=== PATIENT | male | born 1955 | race Caucasian/White ===

== ENCOUNTER 2018-10-05 18:50 | Emergency (ER) | payer OTHER ==
[~2018-10-05] VITALS: Ht 167.6 cm; Wt 70.0 kg
[~2018-10-05 18:50] MED LIST: ALPR1TAB7 PO; AMLO-147 PO; AMLO2.5T78 PO; ASPI1TAB2 PO; BIOT1CAP3 PO; BISM262O23 PO; CLON-379 PO; METO-429 PO; METO10TA3 PO; OMEP40CA6 PO; SUMA25TA34 PO
[2018-10-05 19:13] VITALS: Ht 167.6 cm; Wt 70.0 kg
--- NOTE | 2018-10-05 21:13 | ERD ---
ER Documentation Chief Complaint Chief Complaint C/O DARK STOOLS, DIZZINESS AND SOB SINCE LAST NIGHT HPI Very pleasant 63-year-old gentleman history of gastritis but no history of peptic ulcer disease, NSAID abuse or alcohol abuse. The patient presents with 2 days of dark stools. He denies darker stools that are brown not black not malodorous. He states that he recently started taking Pepto-Bismol for 1 to 2 days just before these findings started. He denies any hematemesis, no chest pain or shortness of breath. The patient has constant postprandial epigastric abdominal discomfort that is consistent with his gastritis. 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 It was reported that he had dizziness and shortness of breath last night at triage but he denies this on my examination and history. ROS All systems reviewed and are negative except as per history of present illness. Medications Home Meds Active Scripts Amlodipine Besylate* (Amlodipine Besylate*) 10 Mg Tablet, 10 MG PO DAILY, #30 TAB Prov:HEIDI FLYNN DO 02/23/15 Clonidine Hcl* (Clonidine Hcl*) 0.1 Mg Tab, 0.3 MG PO BID, #20 TAB Prov:DION DANIEL MD 02/15/15 Reported Medications Dvfvqvh-Cctzlpfokjlkl-Diwmdoai* (Excedrin Extra Strength*) 250-250-65 Mg Tablet, 1 TAB PO Q6H PRN for PAIN, TAB 02/14/15 Sumatriptan Succinate* (Imitrex*) Unknown Strength Tablet, PO BID PRN for HEADACHE, TAB May repeat after 2 hours if needed; MAX 200 mg/24 hours 02/14/15 Allergies Allergies: Coded Allergies: No Known Allergy (Unverified , 02/14/15) PMhx/Soc History of Surgery: No Anesthesia Reaction: No Hx Neurological Disorder: No Hx Respiratory Disorders: No Hx Cardiac Disorders: Yes (HTN) Hx Psychiatric Problems: No Hx Miscellaneous Medical Probl: No Hx Alcohol Use: No Hx Substance Use: No Hx Tobacco Use: Yes Smoking Status: Current every day smoker FmHx Family History: No diabetes Physical Exam Vitals Vital Signs Date Temp Pulse Resp B/P (MAP) Pulse Ox O2 O2 Flow FiO2 Time Delivery Rate 10/05/18 44 16 162/74 98 Room Air 20:09 (103) 10/05/18 97.8 47 17 141/68 99 19:13 (92) Physical Exam General: Well developed, well nourished, no acute distress Head: Normocephalic, atraumatic. Eyes: Pupils equally reactive, EOM intact ENT: Moist mucous membranes Neck: Supple, no lymphadenopathy Respiratory: Lungs clear bilaterally, no distress Cardiovascular: RRR, no murmurs, rubs, or gallops Abdominal: Soft, non-tender, non-distended, no peritoneal signs : Deferred MSK: No edema, no unilateral swelling, 5/5 strength Neurologic: Alert and oriented, moving all extremities, normal speech, no focal weakness, no cerebellar signs Skin: No rash Psych: Normal mood Result Diagram: 10/05/18200510/05/182005 Results 24 hrs Laboratory Tests Test 10/05/18 20:06 White Blood Count 5.9 10^3/ul Red Blood Count 5.08 10^6/ul Hemoglobin 14.3 g/dl Hematocrit 44.5 % Mean Corpuscular Volume 87.6 fl Mean Corpuscular Hemoglobin 28.1 pg Mean Corpuscular Hemoglobin Concent 32.1 g/dl Red Cell Distribution Width 13.2 % Platelet Count 188 10^3/UL Mean Platelet Volume 10.0 fl Immature Granulocytes % 0.200 % Neutrophils % 64.8 % Lymphocytes % 24.4 % Monocytes % 8.5 % Eosinophils % 1.2 % Basophils % 0.9 % Nucleated Red Blood Cells % 0.0 /100WBC Immature Granulocytes # 0.010 10^3/ul Neutrophils # 3.8 10^3/ul Lymphocytes # 1.4 10^3/ul Monocytes # 0.5 10^3/ul Eosinophils # 0.1 10^3/ul Basophils # 0.1 10^3/ul Nucleated Red Blood Cells # 0.0 10^3/ul Prothrombin Time 12.9 Sec Prothrombin Time Ratio 1.0 INR International Normalized Ratio 0.96 Activated Partial Thromboplast Time 30.5 Sec Sodium Level 141 mmol/L Potassium Level 4.7 mmol/L Chloride Level 101 mmol/L Carbon Dioxide Level 33 mmol/L Anion Gap 7 Blood Urea Nitrogen 17 mg/dl Creatinine 1.11 mg/dl Est Glomerular Filtrat Rate mL/min > 60 mL/min Glucose Level 88 mg/dl Calcium Level 9.5 mg/dl Total Bilirubin 0.4 mg/dl Direct Bilirubin 0.00 mg/dl Indirect Bilirubin 0.4 mg/dl Aspartate Amino Transf (AST/SGOT) 21 IU/L Alanine Aminotransferase (ALT/SGPT) 30 IU/L Alkaline Phosphatase 40 IU/L Troponin I < 0.012 ng/ml Total Protein 7.7 g/dl Albumin 4.5 g/dl Globulin 3.20 g/dl Albumin/Globulin Ratio 1.40 Procedures/MDM LAB INTERPRETATION: I reviewed the laboratory testing and it shows [no evidence of acute process] MEDICAL DECISION MAKING: The patient presents to the emergency room with darker stools after taking Pepto-Bismol. All the patient does have a history of gastritis he has no risk factors for peptic ulcer disease and does not clinically appear to have evidence of melena or upper GI hemorrhage. Additionally the patient's hemoglobin is 14.3, BUN to creatinine ratio is normal and the patient's [place] bleeding score is 0 points. Based on these findings I do not believe the patient warrants hospitalization and further investigation in the acute setting. The patient however needs to follow-up with his solar photovoltaic installer. Return precautions were discussed and understood. Patient verbalized understanding and feels comfortable with this plan. The darker stools at this point do not seem to be consistent with melena and her most likely secondary to Pepto-Bismol use. CONSULTATION: [None] DISPOSITION PLAN: The patient does not have an identifiable emergent medical condition that warrants inpatient hospitalization at this time. The patient is deemed safe for discharge with outpatient follow-up. We discussed follow up with the patient's primary care doctor within 24 to 48 hours as needed. We also discussed return to the emergency room for worsening symptoms or worsening condition. Outpatient referral: Gastroenterology Discharge Medications: [None required] Departure Diagnosis: Primary Impression: Gastritis Gastritis type: unspecified gastritis Chronicity: unspecified Gastritis bleeding: without bleeding Qualified Codes: K29.70 - Gastritis, unspecified, without bleeding Additional Impression: Dark stools Condition: Stable Patient Instructions: Gastritis (Adult) Referrals: MYRNA WILSON MD, PIYUSH K [facility] YOU HAVE RECEIVED A MEDICAL SCREENING EXAM AND THE RESULTS INDICATE THAT YOU DO NOT HAVE A CONDITION THAT REQUIRES URGENT TREATMENT IN THE EMERGENCY DEPARTMENT. FURTHER EVALUATION AND TREATMENT OF YOUR CONDITION CAN WAIT UNTIL YOU ARE SEEN IN YOUR DOCTORS OFFICE WITHIN THE NEXT 1-2 DAYS. IT IS YOUR RESPONSIBILITY TO MAKE AN APPOINTMENT FOR FOLOW-UP CARE. IF YOU HAVE A PRIMARY DOCTOR --you should call your primary doctor and schedule an appointment IF YOU DO NOT HAVE A PRIMARY DOCTOR YOU CAN CALL OUR PHYSICIAN REFERRAL HOTLINE AT IF YOU CAN NOT AFFORD TO SEE A PHYSICIAN YOU CAN CHOSE FROM THE FOLLOWING [facility] [address] [facility] [address] [facility] [address] [facility] [address] [facility] [address] [facility]. [facility] [address] [facility]. [facility] YOU HAVE RECEIVED A MEDICAL SCREENING EXAM AND THE RESULTS INDICATE THAT YOU DO NOT HAVE A CONDITION THAT REQUIRES URGENT TREATMENT IN THE EMERGENCY DEPARTMENT. FURTHER EVALUATION AND TREATMENT OF YOUR CONDITION CAN WAIT UNTIL YOU ARE SEEN IN YOUR DOCTORS OFFICE WITHIN THE NEXT 1-2 DAYS. IT IS YOUR RESPONSIBILITY TO MAKE AN APPOINTMENT FOR FOLOW-UP CARE. IF YOU HAVE A PRIMARY DOCTOR --you should call your primary doctor and schedule and appointment IF YOU DO NOT HAVE A PRIMARY DOCTOR YOU CAN CALL OUR PHYSICIAN REFERRAL HOTLINE AT . IF YOU CAN NOT AFFORD TO SEE A PHYSICIAN YOU CAN CHOSE FROM THE FOLLOWING [facility]: [facility] [address] [place] [address] [facility] [address] [place] [address] [facility] [address] [place] [address] Additional Instructions: Call your primary care doctor TOMORROW for an appointment during the next 1 WEEK.Tell the police department secretary that you were referred from this facility.See the doctor sooner or return here if your condition worsens before your appointment time. DONI OGDEN MD Oct 05, 2018 21:13
[2018-10-05 21:19] VITALS: BP 158/72; PULSE 45; RESP 16
== END 2018-10-05 21:20 | disposition home or self-care (01) ==
LOC: E/R 18:50
DX: K29.70 Gastritis, unspecified, without bleeding (principal); I10 Essential (primary) hypertension; F17.210 Nicotine dependence, cigarettes, uncomplicated; R19.5 Other fecal abnormalities; Z79.82 Long term (current) use of aspirin
CPT/HCPCS: 36415; 80053; 84484; 85025; 85610; 85730; 86850; 86900; 86901; 93005